=== PATIENT | female | born 1950 | race American Indian/Alaskan Native ===

== ENCOUNTER 2018-01-05 17:38 | Emergency (ER) | payer MEDICARE ==
[2018-01-05 17:44] VITALS: BP 205/86
--- NOTE | 2018-01-05 18:57 | Cat Scan Report ---
FINAL REPORT EXAM: CT HEAD/BRAIN WO CON HISTORY: dizziness, MCGRATH TECHNIQUE: 2.5 millimeter axial images from the skullbase to the vertex. Comparison: None FINDINGS: There is no evidence of an acute intracranial process, intracranial hemorrhage or mass effect. The ventricles are normal size. There is atherosclerotic vascular calcification of the internal carotid arteries bilaterally at the skullbase. The visualized portions of the orbits, paranasal and mastoid sinuses are unremarkable. 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 IMPRESSION: 1. No evidence of an acute intracranial process, intracranial hemorrhage or mass effect. If there is a clinical suspicion of an acute intracranial process and if further imaging is required, MRI brain may be helpful. 2. Atherosclerotic vascular calcification internal carotid arteries. 3. 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
[2018-01-05 19:27] LABS: Hematocrit 41.5 % (30.3-42.9); Mean Corpuscular HGB Conc 34 % (30-34); Mean Corpuscular Hemoglobin 31 pg (28-32); Mean Corpuscular Volume 92 fl (79-97); Platelet Count 258 K/mm3 (140-440); Red Blood Count 4.54 M/mm3 (3.65-5.03); Red Cell Distribution Width 13.5 % (13.2-15.2)
[2018-01-05 19:38] LABS: BUN/Creatinine Ratio 20; Blood Urea Nitrogen 6 mg/dL (7-17); Calcium 9.2 mg/dL (8.4-10.2); Hemolysis Index 93
== END 2018-01-05 20:55 | disposition left against medical advice (07) ==
LOC: ED 17:38
DX: I10 Essential (primary) hypertension (principal); Z53.21 Procedure and treatment not carried out due to patient leaving prior to being seen by health care provider; R42 Dizziness and giddiness; R51 Headache
CPT/HCPCS: 36415; 70450; 80048; 85027; 93005; 93010